=== PATIENT | female | born 1985 | race Caucasian/White ===

== ENCOUNTER 2016-07-04 03:17 | Emergency (ER) | payer OTHER ==
[2016-07-04 03:23] VITALS: BP 148/92
[2016-07-04 04:11] LABS: ABSOLUTE EOSINOPHILS # (AUTO) 0.2 10^3/uL (0.0-0.6); ABSOLUTE LYMPHOCYTES (AUTO) 3.2 10^3/uL (0.5-4.7); ABSOLUTE MONOCYTES (AUTO) 0.6 10^3/uL (0.1-1.4); ABSOLUTE NEUT (AUTO) 7.1 10^3/uL (1.7-8.2); BASOPHILS % (AUTO) 0.2 % (0-2); EOSINOPHILS % (AUTO) 1.6 % (0-6); HEMATOCRIT 39.5 % (36.0-47.0); HEMOGLOBIN 12.7 g/dL (12.0-15.5); HGB HCT DIFFERENCE -1.4; LYMPHOCYTES % (AUTO) 28.9 % (13-45); MEAN CORPUSCULAR HEMOGLOBIN 22.6 pg (27.0-33.4); MEAN CORPUSCULAR HGB CONC 32.3 g/dL (32.0-36.0); MEAN CORPUSCULAR VOLUME 70 fl (80-97); MONOCYTES % (AUTO) 5.1 % (3-13); RED BLOOD COUNT 5.63 10^6/uL (3.72-5.28); RED CELL DISTRIBUTION WIDTH 15.2 % (11.5-14.0); SEGMENTED NEUTROPHILS % (AUTO) 64.2 % (42-78)
[2016-07-04 04:23] LABS: ALANINE AMINOTRANSFERASE 34 U/L (9-52); ALBUMIN 4.8 g/dL (3.5-5.0); ALKALINE PHOSPHATASE 81 U/L (38-126); ASPARTATE AMINO TRANSFERASE 24 U/L (14-36); BILIRUBIN,DIRECT 0.4 mg/dL (0.0-0.4); BILIRUBIN,TOTAL 0.6 mg/dL (0.2-1.3); BLOOD UREA NITROGEN 13 mg/dL (7-20); CALCIUM 9.9 mg/dL (8.4-10.2); CREATINE KINASE 98 U/L (30-135); CREATININE RESULT 0.65 mg/dL (0.52-1.25); GLUCOSE 111 mg/dL (75-110); TOTAL PROTEIN 8.5 g/dL (6.3-8.2)
[2016-07-04 04:31] LABS: CARBON DIOXIDE 19 mmol/L (22-30); CHLORIDE 109 mmol/L (98-107); POTASSIUM 3.7 mmol/L (3.6-5.0); SODIUM 148.8 mmol/L (137-145)
[2016-07-04 04:35] LABS: ANION GAP 21 (5-19); CREATINE KINASE MB 0.42 ng/mL (<4.55)
[2016-07-04 04:36] LABS: TROPONIN I < 0.012 ng/mL
[2016-07-04 04:46] LABS: APPEARANCE,URINE SLIGHTLY-CLOUDY; BILIRUBIN,URINE NEGATIVE (NEGATIVE); GLUCOSE, URINE NEGATIVE (NEGATIVE); KETONES,URINE NEGATIVE (NEGATIVE); LEUKOCYTE ESTERASE,URINE NEGATIVE (NEGATIVE); NITRITE,URINE NEGATIVE (NEGATIVE); PROTEIN,URINE NEGATIVE (NEGATIVE); UROBILINOGEN,URINE NEGATIVE mg/dL (<2.0)
--- NOTE | 2016-07-04 16:05 | EKG REPORT ---
SEVERITY:- NORMAL ECG - SINUS RHYTHM : Confirmed by: Susan Babb 04-Jul-2016 16:04:09
== END 2016-07-04 07:00 | disposition left against medical advice (07) ==
LOC: ER 03:17
DX: Z53.21 Procedure and treatment not carried out due to patient leaving prior to being seen by health care provider (principal)
CPT/HCPCS: 36415; 71010; 80053; 81001; 82550; 82553; 84484; 85025; 93005; 93010

== ENCOUNTER 2016-09-05 22:59 | Emergency (ER) | payer OTHER ==
--- NOTE | 2016-09-06 00:09 | ER Document Report ---
ED General - General Chief Complaint: Palpitations Stated Complaint: DIZZINESS Time Seen by Provider: 09/06/16 00:08 Mode of Arrival: Ambulatory Information source: Patient Notes: 31 yo female with intermittent heart palpitations for a few weeks, dizzy spells for a few days. Today while she was driving at 4 pm, she felt like she was going to pass out with spinning for a few seconds. Also has some intermittent shortness of breath with discomfort in upper chest, onset today. Got a cold a week ago, dry cough is lingering. Low sharp intermittent pelvic pain today. MIssed menses 5-26, faint positive HCG over the counter, and 1 negative. Still has not gotten menses. No vaginal bleeding or discharge. No dysuria. Alot of gas with nausea. No fever or chills. . No contraceptive. No abd surgery. TRAVEL OUTSIDE OF THE [place] IN LAST 30 DAYS: No - Related Data Allergies/Adverse Reactions: No Known Allergies Allergy (Verified 07/04/16 03:23) Past Medical History - General Information source: Patient - Social History Smoking Status: Never Smoker Frequency of alcohol use: None Drug Abuse: None Family History: Thyroid Disfunction Patient has suicidal ideation: No Patient has homicidal ideation: No - Medical History Notes: obese Endocrine Medical History: Reports: Hx Diabetes Mellitus Type 2 Renal/ Medical History: Denies: Hx Peritoneal Dialysis Psychiatric Medical History: Reports: Hx Anxiety Surgical Hx: Negative - Immunizations Hx Diphtheria, Pertussis, Tetanus Vaccination: Yes Hx Pneumococcal Vaccination: 08/05/12 Review of Systems - Review of Systems Constitutional: See HPI EENT: No symptoms reported Cardiovascular: See HPI Respiratory: No symptoms reported Gastrointestinal: No symptoms reported Genitourinary: No symptoms reported Female Genitourinary: See HPI Musculoskeletal: No symptoms reported Skin: No symptoms reported Hematologic/Lymphatic: No symptoms reported Neurological/Psychological: See HPI Physical Exam - Vital signs Vitals: Temp Pulse Resp BP Pulse Ox 98.3 F 88 16 130/84 H 100 09/05/16 23:04 09/05/16 23:04 09/05/16 23:04 09/05/16 23:04 09/05/16 23:04 Interpretation: Normal - General General appearance: Appears well, Alert In distress: None - HEENT Head: Normocephalic, Atraumatic Eyes: Normal Conjunctiva: Normal Pupils: PERRL Tympanic membrane: Other - TM's obscured by cerumen isatu Mucous membranes: Normal Pharynx: Normal Neck: Supple. No: Lymphadenopathy - Respiratory Respiratory status: No respiratory distress Chest status: Nontender Breath sounds: Normal Chest palpation: Normal - Cardiovascular Rhythm: Regular Heart sounds: Normal auscultation Murmur: No - Abdominal Inspection: Normal Distension: No distension Bowel sounds: Normal Tenderness: Nontender. No: Tender Organomegaly: No organomegaly - Back Back: Normal, Nontender. No: CVA tenderness - Extremities General upper extremity: Normal inspection, Nontender, Normal color, Normal ROM , Normal temperature General lower extremity: Normal inspection, Nontender, Normal color, Normal ROM , Normal temperature, Normal weight bearing. No: Minna's sign - Neurological Neuro grossly intact: Yes Cognition: Normal Orientation: AAOx4 Arik Coma Scale Eye Opening: Spontaneous Arik Coma Scale Verbal: Oriented Arik Coma Scale Motor: Obeys Commands Arik Coma Scale Total: 15 Speech: Normal Motor strength normal: LUE, RUE, LLE, RLE Sensory: Normal - Psychological Associated symptoms: Normal affect, Normal mood - Skin Skin Temperature: Warm Skin Moisture: Dry Skin Color: Normal Skin irregularity: negative: Rash Course - Re-evaluation Re-evalutation: 09/06/16 02:37 test is negative, microcytic anemia. The symptom that is bothering her the most this morning is the shortness of breath, episodic palpitations, and dizziness. Adding D dimer, albuterol nebulizer, and chest xray. 09/06/16 04:23 states the albuterol nebulizer helped her breathe more easily. Has increased menstrual flow since August 2015, but much worse "the past few month- with increased frequent large blood clots". consult dr. hinds who wants stool for hemmocult which has been sent to the lab. 09/06/16 04:47 stool hemmocult is negative. - Vital Signs Vital signs: Temp Pulse Resp BP Pulse Ox 98.3 F 88 19 103/70 99 09/05/16 23:04 09/05/16 23:04 09/06/16 03:15 09/06/16 03:01 09/06/16 03:15 - Laboratory Result Diagrams: 09/06/16 01:02 09/06/16 01:49 Laboratory results interpreted by me: 09/06/16 09/06/16 09/06/16 00:09 01:02 01:49 Hgb 10.7 L Hct 35.0 L MCV 68 L MCH 20.8 L MCHC 30.7 L RDW 16.6 H Chloride 109 H Glucose 116 H ALT 53 H Urine Blood SMALL H Ur Leukocyte Esterase TRACE H Discharge - Discharge Clinical Impression: Dizziness, Late menses, Palpitations, Shortness of breath, Bronchitis Anemia Qualifiers: Anemia type: iron deficiency Iron deficiency anemia type: unspecified iron deficiency Qualified Code(s): D50.9 - Iron deficiency anemia, unspecified Chest pain Qualifiers: Chest pain type: unspecified Qualified Code(s): R07.9 - Chest pain, unspecified Condition: Good Disposition: HOME, SELF-CARE Instructions: Palpitations (Irregular or Rapid Heartrate) ([facility]), Anemia, Iron Deficiency ([facility]) Additional Instructions: over the counter iron twice a day see your doctor at [facility] tomorrow for recheck of the new anemia since june 2016. talk with your doctor about your synthroid/to check TSH level (could contribute to heavier menses if not enough synthroid ) copy of labs given to you return to the ER any concerns, worsening symptoms
[2016-09-06 00:39] LABS: URINE BARBITURATES SCREEN NEGATIVE; URINE METHADONE SCREEN NEGATIVE; URINE OPIATES LOW NEGATIVE; URINE PHENCYCLIDINE SCREEN NEGATIVE
[2016-09-06 00:40] LABS: APPEARANCE,URINE SLIGHTLY-CLOUDY; BILIRUBIN,URINE NEGATIVE (NEGATIVE); CALCIUM OXALATE CRYSTALS,URINE FEW /HPF; GLUCOSE, URINE NEGATIVE (NEGATIVE); KETONES,URINE NEGATIVE (NEGATIVE); LEUKOCYTE ESTERASE,URINE TRACE (NEGATIVE); NITRITE,URINE NEGATIVE (NEGATIVE); PROTEIN,URINE NEGATIVE (NEGATIVE); URINE SPECIFIC GRAVITY 1.029; UROBILINOGEN,URINE NEGATIVE mg/dL (<2.0)
[2016-09-06 01:32] LABS: ABSOLUTE EOSINOPHILS # (AUTO) 0.2 10^3/uL (0.0-0.6); ABSOLUTE LYMPHOCYTES (AUTO) 3.2 10^3/uL (0.5-4.7); ABSOLUTE MONOCYTES (AUTO) 0.6 10^3/uL (0.1-1.4); ABSOLUTE NEUT (AUTO) 4.9 10^3/uL (1.7-8.2); BASOPHILS % (AUTO) 0.1 % (0-2); EOSINOPHILS % (AUTO) 2.3 % (0-6); HEMOGLOBIN 10.7 g/dL (12.0-15.5); HGB HCT DIFFERENCE -2.9; LYMPHOCYTES % (AUTO) 36.2 % (13-45); MEAN CORPUSCULAR HEMOGLOBIN 20.8 pg (27.0-33.4); MEAN CORPUSCULAR HGB CONC 30.7 g/dL (32.0-36.0); MEAN CORPUSCULAR VOLUME 68 fl (80-97); MONOCYTES % (AUTO) 6.7 % (3-13); RED BLOOD COUNT 5.17 10^6/uL (3.72-5.28); RED CELL DISTRIBUTION WIDTH 16.6 % (11.5-14.0); SEGMENTED NEUTROPHILS % (AUTO) 54.7 % (42-78); WHITE BLOOD COUNT 8.9 10^3/uL (4.0-10.5)
[2016-09-06 02:18] LABS: ALANINE AMINOTRANSFERASE 53 U/L (9-52); ALBUMIN 4.1 g/dL (3.5-5.0); ALKALINE PHOSPHATASE 63 U/L (38-126); ANION GAP 12 (5-19); ASPARTATE AMINO TRANSFERASE 34 U/L (14-36); BILIRUBIN,DIRECT 0.3 mg/dL (0.0-0.4); BILIRUBIN,TOTAL 0.3 mg/dL (0.2-1.3); BLOOD UREA NITROGEN 12 mg/dL (7-20); CALCIUM 9.6 mg/dL (8.4-10.2); CARBON DIOXIDE 22 mmol/L (22-30); CHLORIDE 109 mmol/L (98-107); CREATININE RESULT 0.68 mg/dL (0.52-1.25); GLUCOSE 116 mg/dL (75-110); POTASSIUM 3.8 mmol/L (3.6-5.0); SODIUM 143.4 mmol/L (137-145); TOTAL PROTEIN 7.2 g/dL (6.3-8.2)
[2016-09-06] MEDS ORDERED: ALBUTEROL SULFATE 0.083% NEB 2.5 MG/3 ML AMPUL NEB ONE (02:36)
--- NOTE | 2016-09-06 03:53 | RADIOLOGY REPORT (SQ) ---
EXAM DESCRIPTION: CHEST PA/LAT COMPLETED DATE/TIME: 09/06/2016 3:36 am REASON FOR STUDY: chest pain, cough COMPARISON: 07/04/2016. EXAM PARAMETERS: NUMBER OF VIEWS: two views TECHNIQUE: Digital Frontal and Lateral radiographic views of the chest acquired. RADIATION DOSE: NA LIMITATIONS: none FINDINGS: LUNGS AND PLEURA: No opacities, masses or pneumothorax. No pleural effusion. MEDIASTINUM AND HILAR STRUCTURES: No masses or contour abnormalities. HEART AND VASCULAR STRUCTURES: Heart normal size. No evidence for failure. BONES: No acute findings. HARDWARE: None in the chest. OTHER: No other significant finding. IMPRESSION: NO SIGNIFICANT RADIOGRAPHIC FINDING IN THE CHEST. TECHNICAL DOCUMENTATION: JOB ID: [id number] [employer]- All Rights Reserved
[2016-09-06] MEDS ORDERED: ALBUTEROL SULFATE HFA (90 MCG/PUFF) 8 GM MDI (1 MDI/ER DISP) IH PRN (04:49)
[2016-09-06 05:27] VITALS: BP 118/61
--- NOTE | 2016-09-06 10:03 | EKG REPORT ---
SEVERITY:- NORMAL ECG - SINUS RHYTHM : Confirmed by: Susan Babb 06-Sep-2016 10:02:35
== END 2016-09-06 05:18 | disposition home or self-care (01) ==
LOC: ER 22:59
DX: J40 Bronchitis, not specified as acute or chronic (principal); R42 Dizziness and giddiness; R00.2 Palpitations; D50.9 Iron deficiency anemia, unspecified; R07.9 Chest pain, unspecified; R06.02 Shortness of breath; R05 Cough
CPT/HCPCS: 36415; 71020; 80053; 80307; 81001; 82272; 84703; 85025; 85379; 87086; 93005; 93010; 94640; 99285

== ENCOUNTER 2019-12-30 14:05 | Emergency (ER) | payer OTHER ==
[2019-12-30 14:12] VITALS: BP 126/55
--- NOTE | 2019-12-30 14:19 | ER Document Report ---
ED Medical Screen (RME) - General Chief Complaint: Rectal Bleeding Stated Complaint: BLOODY STOOL Time Seen by Provider: 12/30/19 14:11 Mode of Arrival: Ambulatory Information source: Patient Notes: HPI; 34-year-old female presents emergency room complaining of dark blood that she noticed after having a bowel movement earlier today. States she noticed blood when she wiped. Did not notice any blood in the toilet bowl. No rectal trauma, no rectal sex. No recent hard stools. States on Monday she had vomiting and diarrhea that has since resolved. No bad food she can think of. No one else at home is ill. No COVID-19 exposure. No recent travel. PE: Alert and oriented x3. Lungs: Clear to auscultation without rales, rhonchi, wheezes. Heart: Regular rate rhythm without murmurs, rubs, gallops. I have greeted and performed a rapid initial assessment of this patient. A comprehensive ED assessment and evaluation of the patient, analysis of test results and completion of the medical decision making process will be conducted by additional ED providers. I have specifically instructed the patient or family members with the patient to immediately return to any nursing staff sh ould anything change in the patient's condition or with their chief complaint. TRAVEL OUTSIDE OF THE [place] IN LAST 30 DAYS: No - Related Data Allergies/Adverse Reactions: No Known Allergies Allergy (Verified 12/30/19 14:11) Home Medications: metformin, synthroid, zoloft, latuda, nuvaring Past Medical History - Social History Chew tobacco use (# tins/day): No Frequency of alcohol use: None Drug Abuse: None Endocrine Medical History: Reports: Hx Diabetes Mellitus Type 2 Renal/ Medical History: Denies: Hx Peritoneal Dialysis Psychiatric Medical History: Reports: Hx Anxiety - Immunizations Hx Diphtheria, Pertussis, Tetanus Vaccination: Yes Physical Exam - Vital signs Vitals: Temp Pulse Resp BP Pulse Ox 98.0 F 83 20 126/55 H 96 12/30/19 14:10 12/30/19 14:10 12/30/19 14:10 12/30/19 14:10 12/30/19 14:10 Course - Vital Signs Vital signs: Temp Pulse Resp BP Pulse Ox 98.0 F 83 20 126/55 H 96 12/30/19 14:10 12/30/19 14:10 12/30/19 14:10 12/30/19 14:10 12/30/19 14:10
[2019-12-30 14:50] LABS: ABSOLUTE EOSINOPHILS # (AUTO) 0.1 10^3/uL (0.0-0.6); ABSOLUTE LYMPHOCYTES (AUTO) 1.9 10^3/uL (0.5-4.7); ABSOLUTE MONOCYTES (AUTO) 0.3 10^3/uL (0.1-1.4); ABSOLUTE NEUT (AUTO) 5.1 10^3/uL (1.7-8.2); BASOPHILS % (AUTO) 0.1 % (0-2); EOSINOPHILS % (AUTO) 0.9 % (0-6); HEMATOCRIT 34.2 % (36.0-47.0); HEMOGLOBIN 11.3 g/dL (12.0-15.5); LYMPHOCYTES % (AUTO) 25.8 % (13-45); MEAN CORPUSCULAR HEMOGLOBIN 22.3 pg (27.0-33.4); MEAN CORPUSCULAR HGB CONC 32.9 g/dL (32.0-36.0); MEAN CORPUSCULAR VOLUME 68 fl (80-97); MONOCYTES % (AUTO) 4.4 % (3-13); PLATELET COUNT 248 10^3/uL (150-450); RED BLOOD COUNT 5.04 10^6/uL (3.72-5.28); RED CELL DISTRIBUTION WIDTH 19.6 % (11.5-14.0); SEGMENTED NEUTROPHILS % (AUTO) 68.8 % (42-78); TOTAL CELLS COUNTED % (AUTO) 100 %; WHITE BLOOD COUNT 7.4 10^3/uL (4.0-10.5)
[2019-12-30 15:11] LABS: ALKALINE PHOSPHATASE 66 U/L (38-126); ANION GAP 7 (5-19); ASPARTATE AMINO TRANSFERASE 50 U/L (14-36); BILIRUBIN,DIRECT 0.2 mg/dL (0.0-0.4); BILIRUBIN,TOTAL 0.4 mg/dL (0.2-1.3); BLOOD UREA NITROGEN 10 mg/dL (7-20); CALCIUM 9.1 mg/dL (8.4-10.2); CARBON DIOXIDE 23 mmol/L (22-30); CHLORIDE 110 mmol/L (98-107); GLUCOSE 183 mg/dL (75-110); TOTAL PROTEIN 6.9 g/dL (6.3-8.2)
== END 2019-12-30 16:54 | disposition left against medical advice (07) ==
LOC: ER 14:05
DX: K62.5 Hemorrhage of anus and rectum (principal); F41.9 Anxiety disorder, unspecified; E11.9 Type 2 diabetes mellitus without complications; Z79.84 Long term (current) use of oral hypoglycemic drugs; Z79.899 Other long term (current) drug therapy; Z97.5 Presence of (intrauterine) contraceptive device; Z53.20 Procedure and treatment not carried out because of patient's decision for unspecified reasons
CPT/HCPCS: 36415; 80053; 85025; 99281